=== PATIENT | female | born 1945 | race Caucasian/White ===

== ENCOUNTER → 2016-08-30 | Outpatient (CLI) | payer BC, OTHER ==
[~2016-08-30] MED LIST: ADVIL,NUPRIN,M200 MG PO; CENTRUM SILVER1 EAC3 PO; CENTRUM SILVER1 EACH PO; CHILDREN'S ASPI81 M1 PO; CORGARD40 MG PO; FISH OIL500 MG PO; GLUCOPHAGE1000 MG PO; HYDROCHLOROTHIA25 MG PO; HYDROCODON-ACE1 EAC7 PO; HYDRODIURIL,ORE25 MG PO; L-LYSINE500 M1 PO; LIPITOR40 MG PO; METFORMIN HCL500 M1 PO; NADOLOL40 MG PO; PRAVACHOL20 MG PO; TYLENOL EXTRA500 MG PO; VITAMIN D-32000 UNI1 PO; VITAMIN D1000 UNIT PO
== END | disposition home or self-care (01) ==
LOC: OPR 09:19 → EDSTATUS 10:00 → OPR 10:00
PROC: 0BBD3ZX Excision of Right Middle Lung Lobe, Percutaneous Approach, Diagnostic (ICD-10-PCS; principal; 2016-08-30)
DX: C34.2 Malignant neoplasm of middle lobe, bronchus or lung (principal); E11.9 Type 2 diabetes mellitus without complications; E78.5 Hyperlipidemia, unspecified; I10 Essential (primary) hypertension; Z87.891 Personal history of nicotine dependence
CPT/HCPCS: 71010; 77012; 85027; 85610; 85730; 88305; 88341 TC; 88342 TC; J3010

== ENCOUNTER 2016-09-27 05:57 | Inpatient (IN) | payer BC, OTHER ==
[~2016-09-27] VITALS: Ht 162.6 cm; Wt 67.0 kg
[~2016-09-27 05:57] MED LIST changes: +PRAVACHOL40 MG PO
[2016-09-27 07:08] VITALS: BP 178/73
[2016-09-27 07:09] LABS: POINT-OF-CARE METER ID UU14174212
[2016-09-27 07:24] LABS: PROTHROMBIN TIME 10.3 (9.2-11.2)
[2016-09-27 18:20] LABS: POINT-OF-CARE METER ID UU13113675
[2016-09-27 21:57] VITALS: BP 105/38
[2016-09-27 21:58] VITALS: BP 105/38
[2016-09-27 23:00] VITALS: BP 109/43
[2016-09-27 23:05] LABS: POINT-OF-CARE METER ID UU14174217; POINT-OF-CARE USER ID PHATLC
[2016-09-27 23:09] LABS: METH RESISTANT S AUREUS PCR NEGATIVE (NEGATIVE)
[2016-09-27 23:10] LABS: PROBE CHECK PASS; SPECIMEN PROCESSING CONTROL PASS
[2016-09-28] VITALS (9 sets, daily range): BP systolic 101–137; BP diastolic 38–55
[2016-09-28 03:14] LABS: POINT-OF-CARE METER ID UU13113748; POINT-OF-CARE USER ID PHATLC
[2016-09-28 06:12] LABS: POINT-OF-CARE METER ID UU13113748; POINT-OF-CARE USER ID PHATLC
[2016-09-28 06:27] LABS: MCH 30.3 PG (29.0-34.0); MCHC 33.7 G/DL (30.0-36.0); MCV 89.7 FL (83-99); MEAN PLAT.VOLUME 11.6 uM^3 (9.5-12.4); PLATELET COUNT 138 K/uL (156-360); RBC DIS.WIDTH-CV 13.8 % (11.8-14.6); RBC DIS.WIDTH-SD 45.1 % (39-53); WHITE BLOOD COUNT 7.9 K/uL (4.1-10.2)
[2016-09-28 06:47] LABS: ANION GAP 10 MEQ/L (2-14); CHLORIDE 102 MEQ/L (99-109); GFR ESTIMATE (CALCULATED) > 59 mL/min/; GLUCOSE 148 mg/dL (70-99); POTASSIUM 3.4 MEQ/L (3.7-5.4); SAMPLE HEMOLYSIS CHECK 0; SAMPLE ICTERIC CHECK 0; SAMPLE LIPEMIA CHECK 0; SODIUM 139 MEQ/L (136-147); UREA NITROGEN (BUN) 14 mg/dL (9-23)
[2016-09-28 14:55] LABS: POINT-OF-CARE METER ID UU14174217
[2016-09-28 17:50] LABS: POINT-OF-CARE METER ID UU14174217
[2016-09-28 22:44] LABS: POINT-OF-CARE METER ID UU14174217
[2016-09-29] VITALS (8 sets, daily range): BP systolic 0–144; BP diastolic 0–53
[2016-09-29 06:07] LABS: HEMATOCRIT 35.1 % (36.0-46.0); MCH 28.7 PG (29.0-34.0); MCHC 31.9 G/DL (30.0-36.0); MEAN PLAT.VOLUME 11.2 uM^3 (9.5-12.4); PLATELET COUNT 127 K/uL (156-360); RBC DIS.WIDTH-CV 13.8 % (11.8-14.6); RBC DIS.WIDTH-SD 45.3 % (39-53); WHITE BLOOD COUNT 6.8 K/uL (4.1-10.2)
[2016-09-29 06:23] LABS: ANION GAP 6 MEQ/L (2-14); CHLORIDE 103 MEQ/L (99-109); GFR ESTIMATE (CALCULATED) > 59 mL/min/; GLUCOSE 124 mg/dL (70-99); SAMPLE HEMOLYSIS CHECK 0; SAMPLE ICTERIC CHECK 0; SAMPLE LIPEMIA CHECK 0; SODIUM 137 MEQ/L (136-147); UREA NITROGEN (BUN) 12 mg/dL (9-23)
[2016-09-29 08:37] LABS: POINT-OF-CARE METER ID UU14174217
[2016-09-29 12:06] LABS: POINT-OF-CARE METER ID UU14174217
[2016-09-29 17:38] LABS: POINT-OF-CARE METER ID UU13113731
[2016-09-29 23:07] LABS: POINT-OF-CARE METER ID UU13113731
[2016-09-30 05:18] VITALS: BP 110/71
[2016-09-30 05:34] LABS: HEMATOCRIT 36.2 % (36.0-46.0); MCH 30.1 PG (29.0-34.0); MCHC 33.1 G/DL (30.0-36.0); MCV 90.7 FL (83-99); RBC DIS.WIDTH-CV 13.6 % (11.8-14.6); RBC DIS.WIDTH-SD 45.2 % (39-53); RED BLOOD COUNT 3.99 M/uL (3.80-5.20); WHITE BLOOD COUNT 6.8 K/uL (4.1-10.2)
[2016-09-30 06:15] LABS: MEAN PLAT.VOLUME 11.4 uM^3 (9.5-12.4)
[2016-09-30 06:16] LABS: PLATELET COUNT 170 K/uL (156-360)
[2016-09-30 08:00] VITALS: BP 111/47
[2016-09-30 08:42] LABS: POINT-OF-CARE METER ID UU14162636
[2016-09-30 12:00] VITALS: BP 121/42
[2016-09-30 12:47] LABS: POINT-OF-CARE METER ID UU14162636
[2016-09-30 17:00] VITALS: BP 134/44
[2016-09-30 17:27] LABS: POINT-OF-CARE METER ID UU14174217
[2016-09-30 19:40] VITALS: BP 120/38
[2016-09-30 20:04] LABS: ADD MIUA? NO; BILIRUBIN NEGATIVE; BLOOD NEGATIVE; COLOR YELLOW ((YELLOW)); GLUCOSE (STRIP) NEGATIVE; KETONES NEGATIVE; LEUKOCYTES NEGATIVE; NITRITE NEGATIVE; PROTEIN (STRIP) NEGATIVE; UCUL ADDED? NO; UROBILINOGEN 0.2 MG/DL (0.2-1.0)
[2016-09-30 23:14] VITALS: BP 119/37
[2016-09-30 23:25] LABS: POINT-OF-CARE METER ID UU13113803
[2016-10-01 04:11] VITALS: BP 116/47
[2016-10-01 06:01] LABS: ANION GAP 8 MEQ/L (2-14); CHLORIDE 102 MEQ/L (99-109); GFR ESTIMATE (CALCULATED) > 59 mL/min/; GLUCOSE 116 mg/dL (70-99); POTASSIUM 4.1 MEQ/L (3.7-5.4); SAMPLE HEMOLYSIS CHECK 0; SAMPLE ICTERIC CHECK 0; SAMPLE LIPEMIA CHECK 0; SODIUM 139 MEQ/L (136-147); UREA NITROGEN (BUN) 18 mg/dL (9-23)
[2016-10-01 07:03] LABS: HEMATOCRIT 33.7 % (36.0-46.0); MCH 30.2 PG (29.0-34.0); MCHC 33.2 G/DL (30.0-36.0); MCV 90.8 FL (83-99); MEAN PLAT.VOLUME 10.9 uM^3 (9.5-12.4); PLATELET COUNT 160 K/uL (156-360); RBC DIS.WIDTH-CV 13.5 % (11.8-14.6); RBC DIS.WIDTH-SD 44.9 % (39-53); RED BLOOD COUNT 3.71 M/uL (3.80-5.20); WHITE BLOOD COUNT 4.8 K/uL (4.1-10.2)
[2016-10-01 08:00] VITALS: BP 112/51
[2016-10-01 12:00] VITALS: BP 119/37
[2016-10-01 17:00] VITALS: BP 121/41
[2016-10-01 17:31] LABS: POINT-OF-CARE METER ID UU13113748
[2016-10-01] MEDS ORDERED: DOCUSATE SODIU100 MG PO (18:26)
[2016-10-01] MEDS ORDERED: NORCO 5/3251 TABLET PO (18:27)
[2016-10-01 20:00] VITALS: BP 130/46
[2016-10-01 20:53] LABS: POINT-OF-CARE METER ID UU13113748
[2016-10-02] VITALS: BP 127/39
[2016-10-02 04:30] VITALS: BP 129/48
[2016-10-02 08:00] VITALS: BP 115/33
[2016-10-02 09:18] LABS: POINT-OF-CARE METER ID UU14174217
[2016-10-02 12:00] VITALS: BP 125/42
[2016-10-02 12:38] LABS: POINT-OF-CARE METER ID UU14174217
[2016-10-02 16:00] VITALS: BP 122/53
== END 2016-10-02 18:11 | disposition home or self-care (01) | DRG 164 ==
LOC: 4WEST 05:57 → 2SOUTH 05:57 → EDSTATUS 14:51 → SDC 14:51 → 2SOUTH 14:52 → 4WEST 21:48
PROVIDERS: Surgery; Thoracic Surgery (Cardiothoracic Vascular Surgery)
DX: C34.2 Malignant neoplasm of middle lobe, bronchus or lung (principal); J93.83 Other pneumothorax; E11.9 Type 2 diabetes mellitus without complications; F17.210 Nicotine dependence, cigarettes, uncomplicated; I10 Essential (primary) hypertension; I65.23 Occlusion and stenosis of bilateral carotid arteries; E78.2 Mixed hyperlipidemia; Z85.3 Personal history of malignant neoplasm of breast; Z90.11 Acquired absence of right breast and nipple; Z88.0 Allergy status to penicillin; Z88.2 Allergy status to sulfonamides; Z88.5 Allergy status to narcotic agent; Z79.82 Long term (current) use of aspirin; Z80.3 Family history of malignant neoplasm of breast; Z80.6 Family history of leukemia; Z82.49 Family history of ischemic heart disease and other diseases of the circulatory system
CPT/HCPCS: 71010; 71020; 80048; 81003; 82948; 85027; 85610; 86850; 86900; 86901; 86920; 87641; 88305; 88309; 88341 TC; 88342 TC; 93005; 94640; 94640 76; 94799; 97530 GO; 99202; J0330; J0360; J0690; J1160; J1170; J1644; J1815; J1885; J2250; J2710; J2765; J2795; J3010; J7040; J7050; J7120

== ENCOUNTER → 2017-11-13 | Outpatient (CLI) | payer BC, OTHER ==
[~2017-11-13] MED LIST changes: +DOCUSATE SODIU100 MG PO; +NORCO 5/3251 TABLET PO
== END | disposition home or self-care (01) ==
LOC: OPR 07:12 → EDSTATUS 08:00 → OPR 08:00
PROVIDERS: Thoracic Surgery (Cardiothoracic Vascular Surgery)
PROC: 0BDF4ZX Extraction of Right Lower Lung Lobe, Percutaneous Endoscopic Approach, Diagnostic (ICD-10-PCS; principal; 2017-11-13)
DX: R91.1 Solitary pulmonary nodule (principal); Z85.118 Personal history of other malignant neoplasm of bronchus and lung; Z85.3 Personal history of malignant neoplasm of breast; Z87.891 Personal history of nicotine dependence; J95.830 Postprocedural hemorrhage of a respiratory system organ or structure following a respiratory system procedure; Z90.10 Acquired absence of unspecified breast and nipple; Z80.1 Family history of malignant neoplasm of trachea, bronchus and lung; E11.9 Type 2 diabetes mellitus without complications; Z79.84 Long term (current) use of oral hypoglycemic drugs; I10 Essential (primary) hypertension; Z80.3 Family history of malignant neoplasm of breast; Z80.6 Family history of leukemia; E78.5 Hyperlipidemia, unspecified; Z88.0 Allergy status to penicillin; Z88.2 Allergy status to sulfonamides; Z88.5 Allergy status to narcotic agent; Z82.49 Family history of ischemic heart disease and other diseases of the circulatory system
CPT/HCPCS: 71045; 77012; 82948; 88305

== ENCOUNTER → 2017-11-28 | Outpatient (CLI) | payer BC, OTHER | END | disposition home or self-care (01) | LOC: OPR 08:17 → EDSTATUS 09:00 | PROC: 0BDF4ZX Extraction of Right Lower Lung Lobe, Percutaneous Endoscopic Approach, Diagnostic (ICD-10-PCS; principal; 2017-11-28) | DX: C34.31 Malignant neoplasm of lower lobe, right bronchus or lung (principal); Z85.3 Personal history of malignant neoplasm of breast; Z87.891 Personal history of nicotine dependence; E11.9 Type 2 diabetes mellitus without complications; Z79.84 Long term (current) use of oral hypoglycemic drugs; I10 Essential (primary) hypertension; E78.5 Hyperlipidemia, unspecified; Z80.6 Family history of leukemia; Z80.1 Family history of malignant neoplasm of trachea, bronchus and lung; Z88.0 Allergy status to penicillin; Z88.2 Allergy status to sulfonamides; Z88.5 Allergy status to narcotic agent; Z79.82 Long term (current) use of aspirin | CPT/HCPCS: 71045; 77012; 88305; J3010 ==

== ENCOUNTER → 2017-12-06 | Outpatient (CLI) | payer BC, OTHER ==
[2017-12-06 10:01] LABS: BASE EXCESS 4.1 mEq/L (-3 to +3); BICARBONATE 28.5 mEq/L (22-26); COMMENTS - BLOOD GASES A+; FI02 0.21 %; METHEMOGLOBIN 0.2 % (0-1.5); PCO2 41 mm Hg (35-45); PO2 79 mm Hg (80-100); SITE LR; TOTAL RESP RATE 16 resp/min; pH 7.45 (7.35-7.45)
== END | disposition home or self-care (01) ==
LOC: RES 09:20
PROVIDERS: Thoracic Surgery (Cardiothoracic Vascular Surgery)
DX: C34.90 Malignant neoplasm of unspecified part of unspecified bronchus or lung (principal); R91.1 Solitary pulmonary nodule
CPT/HCPCS: 36600; 82803; 94060; 94726; 94729

== ENCOUNTER 2017-12-18 22:03 | Inpatient (IN) | payer BC, OTHER ==
[~2017-12-18] VITALS: Ht 165.1 cm; Wt 68.9 kg
[2017-12-19] VITALS (8 sets, daily range): BP systolic 107–175; BP diastolic 50–97
[2017-12-19 07:57] LABS: HEMATOCRIT 42.9 % (36.0-46.0); HEMOGLOBIN 14.8 G/DL (11.9-15.5); MCHC 34.5 G/DL (30.0-36.0); MCV 89.9 FL (83-99); PLATELET COUNT 180 K/uL (156-360); RBC DIS.WIDTH-CV 12.7 % (11.8-14.6); RED BLOOD COUNT 4.77 M/uL (3.80-5.20); WHITE BLOOD COUNT 5.9 K/uL (4.1-10.2)
[2017-12-19 08:05] LABS: INTER. NORMALIZED RATIO 0.9
[2017-12-19 08:07] LABS: PTT 30.8 SEC (25-37)
[2017-12-20] VITALS (11 sets, daily range): BP systolic 107–161; BP diastolic 47–85
[2017-12-20 07:53] LABS: HEMATOCRIT 40.4 % (36.0-46.0); HEMOGLOBIN 13.7 G/DL (11.9-15.5); MCH 30.9 PG (29.0-34.0); MCHC 33.9 G/DL (30.0-36.0); PLATELET COUNT 145 K/uL (156-360); RBC DIS.WIDTH-CV 13.1 % (11.8-14.6); RED BLOOD COUNT 4.44 M/uL (3.80-5.20); WHITE BLOOD COUNT 10.3 K/uL (4.1-10.2)
[2017-12-20 08:22] LABS: CHLORIDE 101 MEQ/L (99-109); CREATININE 0.5 MG/DL (0.6-1.3); GFR ESTIMATE (CALCULATED) > 59 mL/min/; GLUCOSE 137 mg/dL (70-99); POTASSIUM 4.3 MEQ/L (3.7-5.4); SODIUM 135 MEQ/L (136-147); UREA NITROGEN (BUN) 19 mg/dL (9-23)
[2017-12-21 01:15] VITALS: BP 120/57
[2017-12-21 04:03] VITALS: BP 125/58
[2017-12-21 07:37] VITALS: BP 129/60
[2017-12-21 11:37] VITALS: BP 108/55
[2017-12-21] MEDS ORDERED: HYDROCODON-ACE1 EAC7 PO (14:16)
[2017-12-21] MEDS ORDERED: MOTRIN600 MG PO (14:16)
[2017-12-21] MEDS ORDERED: DOCUSATE SODIU100 MG PO (14:19)
[2017-12-21 16:15] VITALS: BP 114/55
== END 2017-12-21 17:45 | disposition home or self-care (01) | DRG 168 ==
LOC: ENRESERV 22:03 → 4WEST 12-19 06:57 → 2SOUTH 12-19 06:57 → ENRESERV 12-19 07:57 → SDC 12-19 08:00 → 2SOUTH 12-19 09:26 → EDSTATUS 12-19 09:26 → SDC 12-19 11:26 → 4WEST 12-19 14:59 → ENRESERV 12-20 → 4WEST 12-20 17:10 → ENRESERV 12-20 17:17 → 5EAST 12-20 20:44
PROVIDERS: Thoracic Surgery (Cardiothoracic Vascular Surgery)
PROC: 0BBF4ZX Excision of Right Lower Lung Lobe, Percutaneous Endoscopic Approach, Diagnostic (ICD-10-PCS; principal; 2017-12-19)
DX: C34.31 Malignant neoplasm of lower lobe, right bronchus or lung (principal); E11.9 Type 2 diabetes mellitus without complications; F17.210 Nicotine dependence, cigarettes, uncomplicated; Z90.2 Acquired absence of lung [part of]; I10 Essential (primary) hypertension; Z85.118 Personal history of other malignant neoplasm of bronchus and lung; Z80.6 Family history of leukemia; Z90.11 Acquired absence of right breast and nipple; Z85.3 Personal history of malignant neoplasm of breast
CPT/HCPCS: 71045; 71046; 77012; 80048; 82948; 85027; 85610; 85730; 86850; 86900; 86901; 86920; 87641; 88307; 94010; 94640; 94640 76; 99202; J0131; J0360; J0690; J1100; J1170; J1650; J1885; J2405; J2710; J3010; J7120; J7643; Q0175